=== PATIENT | male | born 1995 ===

== ENCOUNTER 2021-08-12 11:25 | Emergency (ER) | payer SELFPAY ==
[~2021-08-12] VITALS: Ht 170.2 cm; Wt 72.5 kg
[2021-08-12 11:26] VITALS: BP 105/71
[2021-08-12] MEDS ORDERED: ACET1TAB55 PO (12:15)
== END 2021-08-12 17:14 | disposition left against medical advice (07) ==
LOC: M ED 11:25
DX: Z53.29 Procedure and treatment not carried out because of patient's decision for other reasons (principal)